=== PATIENT | male | born 1990 | race Caucasian/White ===

== ENCOUNTER 2021-10-01 14:00 | Emergency (ER) | payer SELFPAY ==
[~2021-10-01] VITALS: Ht 180.3 cm; Wt 97.5 kg
[2021-10-01 14:01] VITALS: BP 119/48
--- NOTE | 2021-10-01 14:07 | NUR ---
PT AMBULATED TO BED 01.
[2021-10-01] MEDS: ONDANSETRON 4 MG/2 ML VIAL IVP ONE (14:16)
[2021-10-01] MEDS: KETOROLAC 15 MG/ML VIAL IVP ONE (14:17)
--- NOTE | 2021-10-01 14:19 | NUR ---
DR. LIN AT PT BEDSIDE FOR FURTHER EVALUATION.
[2021-10-01 14:28] LABS: BASOPHILS # (AUTO) 0.2 K/uL (0.00-0.22); BASOPHILS % (AUTO) 1.2 % (0.0-2.0); EOSINOPHILS # (AUTO) 0.1 K/uL (0-0.4); EOSINOPHILS % (AUTO) 1.1 % (0.0-4.0); HEMATOCRIT 48.5 % (36-52); HEMOGLOBIN 16.6 g/dL (12.0-18.0); LYMPHOCYTES # (AUTO) 5.4 K/uL (2.0-11.5); LYMPHOCYTES % (AUTO) 42.8 % (20.5-51.1); MEAN CORPUSCULAR HEMOGLOBIN 30 pg (27-31); MEAN CORPUSCULAR HGB CONC 34 g/dL (33-37); MEAN CORPUSCULAR VOLUME 87.2 fL (80-94); MONOCYTES # (AUTO) 1.2 K/uL (0.8-1.0); NEUTROPHILS # (AUTO) 5.6 K/uL (1.8-7.7); NEUTROPHILS % (AUTO) 44.9 % (42.2-75.2); PLATELET COUNT (AUTO) 385 K/uL (140-450); RED BLOOD CELL COUNT(AUTO) 5.56 MIL/uL (4.20-6.10); WHITE BLOOD COUNT (AUTO) 12.5 K/uL (4.8-10.8)
[2021-10-01 14:53] LABS: ALBUMIN 3.5 g/dL (3.4-5.0); ANION GAP 13.6 (8-16); CARBON DIOXIDE 25.8 mmol/L (21-32); CREATININE 1.2 mg/dL (0.6-1.3); POTASSIUM 3.4 mmol/L (3.5-5.1); TOTAL BILIRUBIN 0.4 mg/dL (0.0-1.0)
--- NOTE | 2021-10-01 15:10 | NUR ---
DR LIN AT BEDSIDE FOR FURTHER EVAL, NOTED INCREASED NAUSEA AND VOMITING DESPITE MEDICATION
[2021-10-01] MEDS: diphenhydrAMINE 50 MG/ML VIAL IVP ONE (15:28)
[2021-10-01] MEDS: HALOPERIDOL IM 5 MG/ML VIAL IVP ONE (15:28)
--- NOTE | 2021-10-01 15:40 | NUR ---
PT TAKEN TO CT VIA WC
--- NOTE | 2021-10-01 16:30 | NUR ---
SPOKE TO DR LAND, PT NO URINE YET, ORDERED NSS BOLUS, STATED THAT IF BOLUS FINISHED AND NO URINE, MAY STRAIGHT CATH
[2021-10-01] MEDS: NACL 0.9% 1,000 ML IV ONE (16:31)
[2021-10-01] MEDS ORDERED: NACL 0.9% 1,000 ML IV ONE (17:55)
[2021-10-01] MEDS ORDERED: TAMS0.4C96 PO (18:34)
[2021-10-01] MEDS ORDERED: ONDA-188 SL (18:34)
[2021-10-01] MEDS ORDERED: IBUP-2218 PO (18:34)
[2021-10-01 19:13] VITALS: BP 137/92
--- NOTE | 2021-10-01 19:14 | NUR ---
Patient discharged with v/s stable. Written and verbal after care instructions given and explained. Patient alert, oriented and verbalized understanding of instructions. Ambulatory with steady gait. All questions addressed prior to discharge. ID band removed. Patient advised to follow up with PMD. Rx of TAMSULIN, ZOFRAN, MOTRIN given. Patient educated on indication of medication including possible reaction and side effects. Opportunity to ask questions provided and answered.
[2021-10-01 20:37] LABS: APPEARANCE,URINE CLEAR (CLEAR); BILIRUBIN,URINE NEGATIVE (NEGATIVE); BLOOD, URINE 3+ (NEGATIVE); COLOR,URINE YELLOW (YELLOW); LEUKOCYTE ESTERASE ,URINE NEGATIVE (NEGATIVE); NITRITE, URINE NEGATIVE (NEGATIVE); UGLUCOSE NEGATIVE (NEGATIVE)
[2021-10-01 20:51] LABS: RBC,URINE >100 /HPF (0-5); WBC,URINE NONE SEEN /HPF (0-5)
== END 2021-10-01 19:10 | disposition home or self-care (01) ==
LOC: MED 14:00
DX: N20.0 Calculus of kidney (principal); R11.10 Vomiting, unspecified; F12.90 Cannabis use, unspecified, uncomplicated; Z79.899 Other long term (current) drug therapy; Z98.890 Other specified postprocedural states
CPT/HCPCS: 36415; 74177; 80053; 81001; 83690; 85025; 96361; 96374; 96375; 99285; J1200; J1630; J1885; J2405; J7030; Q9967

== ENCOUNTER 2021-11-20 08:21 | Emergency (ER) | payer MEDICAID ==
[~2021-11-20] VITALS: Ht 180.3 cm; Wt 117.0 kg
[~2021-11-20 08:21] MED LIST: IBUP-2218 PO; ONDA-188 SL; TAMS0.4C96 PO
--- NOTE | 2021-11-20 08:28 | NUR ---
Patient ambulated with steady gait to bed 8.
--- NOTE | 2021-11-20 08:31 | NUR ---
Dr. Whalen evaluating patient at bedside.
[2021-11-20] MEDS ORDERED: KETOROLAC 30 MG/ML VIAL IVP ONE (08:35)
[2021-11-20] MEDS ORDERED: NACL 0.9% 1,000 ML IV SCH (08:35)
[2021-11-20] MEDS ORDERED: DIPHENOXYLATE /ATROPINE 2.5 MG TAB PO ONE (08:35)
[2021-11-20] MEDS ORDERED: FAMOTIDINE 20 MG/2 ML VIAL IVP ONE (08:35)
[2021-11-20] MEDS ORDERED: ONDANSETRON 4 MG/2 ML VIAL IVP ONE ×2 (08:35→09:20)
[2021-11-20 08:39] VITALS: BP 160/108
--- NOTE | 2021-11-20 08:53 | NUR ---
pt continued with n/v, po med not yet given
[2021-11-20 09:07] LABS: BASOPHILS # (AUTO) 0.1 K/uL (0.00-0.22); BASOPHILS % (AUTO) 1.4 % (0.0-2.0); EOSINOPHILS # (AUTO) 0.2 K/uL (0-0.4); EOSINOPHILS % (AUTO) 2.3 % (0.0-4.0); HEMATOCRIT 52.6 % (36-52); HEMOGLOBIN 17.7 g/dL (12.0-18.0); LYMPHOCYTES # (AUTO) 2.9 K/uL (2.0-11.5); LYMPHOCYTES % (AUTO) 28.7 % (20.5-51.1); MEAN CORPUSCULAR HEMOGLOBIN 30 pg (27-31); MEAN CORPUSCULAR HGB CONC 34 g/dL (33-37); MEAN CORPUSCULAR VOLUME 88.1 fL (80-94); MONOCYTES # (AUTO) 0.7 K/uL (0.8-1.0); NEUTROPHILS # (AUTO) 6.1 K/uL (1.8-7.7); NEUTROPHILS % (AUTO) 60.6 % (42.2-75.2); PLATELET COUNT (AUTO) 380 K/uL (140-450); RED BLOOD CELL COUNT(AUTO) 5.97 MIL/uL (4.20-6.10); RED CELL DISTRIBUTION WIDTH 14.4 % (11.6-13.7)
[2021-11-20 09:35] LABS: ALBUMIN 3.9 g/dL (3.4-5.0); ANION GAP 14.2 (8-16); CARBON DIOXIDE 26.3 mmol/L (21-32); POTASSIUM 4.5 mmol/L (3.5-5.1); TOTAL BILIRUBIN 0.4 mg/dL (0.0-1.0)
[2021-11-20] MEDS ORDERED: METOCLOPRAMIDE 10 MG/2 ML INJ VIAL IVP ONE ×2 (09:35→12:55)
--- NOTE | 2021-11-20 09:36 | NUR ---
DR RAJPUT MADE AWARE OF PT GIVEN ZOFRAN, CLARIFIED WITH MD REGARDING PT GIVEN REGLAN WELL, STATED THAT EVEN IF THE ZOFRAN WAS JUST GIVEN, GIVE THE REGLAN WELL
--- NOTE | 2021-11-20 09:40 | NUR ---
PT SEEN PUTTING FINGER DOWN HIS THROAT, PT EDUCATED TO NOT FORCE HIMSELF TO THROW UP THIS WILL EXACERBATE HIS PAIN, PT VERBALIZED UNDERSTANDING
[2021-11-20] MEDS ORDERED: HALOPERIDOL IM 5 MG/ML VIAL IM ONE (10:20)
--- NOTE | 2021-11-20 10:48 | NUR ---
Utrasound at bedside.
--- NOTE | 2021-11-20 12:38 | NUR ---
Patient is laying in bed, respirations are even and unlabored. Needs met.
[2021-11-20] MEDS ORDERED: LORazepam 2 MG/ML VIAL IVP ONE (12:55)
[2021-11-20] MEDS ORDERED: LORazepam 2 MG/ML VIAL ONE (12:58)
[2021-11-20] MEDS ORDERED: ONDA-188 PO (13:56)
[2021-11-20] MEDS ORDERED: FAMO-92 PO (13:56)
[2021-11-20 14:00] VITALS: BP 142/84
--- NOTE | 2021-11-20 14:13 | NUR ---
Patient discharged with v/s stable. Written and verbal after care instructions given. Patient alert, oriented and verbalized understanding of instructions. Ambulatory with steady gait. All questions addressed prior to discharge. ID band removed. Patient advised to follow up with PMD. Rx of Pepcid and Zofran given. Opportunity to ask questions provided and answered.
--- NOTE | 2021-11-20 14:20 | NUR ---
The patient's care was reviewed and supervised by Palmer Francisco RN.
== END 2021-11-20 14:13 | disposition home or self-care (01) ==
LOC: MED 08:21
DX: R10.9 Unspecified abdominal pain (principal); R11.2 Nausea with vomiting, unspecified; F12.90 Cannabis use, unspecified, uncomplicated; Z87.442 Personal history of urinary calculi
CPT/HCPCS: 36415; 76705; 80053; 83690; 85025; 96361; 96372; 96374; 96375; 99284; J1630; J1885; J2060; J2405; J2765; J3490; Q0092; J7030

== ENCOUNTER 2022-01-23 13:43 | Emergency (ER) | payer MEDICAID ==
[~2022-01-23] VITALS: Ht 180.3 cm; Wt 115.7 kg
[2022-01-23 13:43] VITALS: BP 159/109
[~2022-01-23 13:43] MED LIST changes: +FAMO-92 PO; +ONDA-188 PO
--- NOTE | 2022-01-23 13:44 | NUR ---
THALIA LUCIANO TO ER CHAIR C
[2022-01-23] MEDS ORDERED: NACL 0.9% 1,000 ML IV ONE (13:55)
[2022-01-23] MEDS ORDERED: KETOROLAC 30 MG/ML VIAL IVP ONE (13:55)
[2022-01-23] MEDS ORDERED: ONDANSETRON 4 MG/2 ML VIAL IVP ONE (13:55)
[2022-01-23] MEDS ORDERED: diphenhydrAMINE 50 MG/ML VIAL IVP ONE (13:55)
--- NOTE | 2022-01-23 14:33 | NUR ---
PATIENT PROVIDED WITH URINAL, STATED UNABLE TO PROVIDE URINE AT THIS TIME, ERMD MADE AWARE
[2022-01-23 15:02] LABS: BASOPHILS # (AUTO) 0.1 K/uL (0.00-0.22); BASOPHILS % (AUTO) 0.6 % (0.0-2.0); EOSINOPHILS % (AUTO) 0.1 % (0.0-4.0); HEMATOCRIT 50.7 % (36-52); HEMOGLOBIN 17.7 g/dL (12.0-18.0); LYMPHOCYTES # (AUTO) 1.5 K/uL (2.0-11.5); LYMPHOCYTES % (AUTO) 13.1 % (20.5-51.1); MEAN CORPUSCULAR HEMOGLOBIN 30 pg (27-31); MEAN CORPUSCULAR HGB CONC 35 g/dL (33-37); MONOCYTES % (AUTO) 8.5 % (1.7-9.3); NEUTROPHILS # (AUTO) 9.2 K/uL (1.8-7.7); NEUTROPHILS % (AUTO) 77.7 % (42.2-75.2); PLATELET COUNT (AUTO) 386 K/uL (140-450); RED BLOOD CELL COUNT(AUTO) 5.83 MIL/uL (4.20-6.10); RED CELL DISTRIBUTION WIDTH 14.2 % (11.6-13.7); WHITE BLOOD COUNT (AUTO) 11.8 K/uL (4.8-10.8)
[2022-01-23 15:30] LABS: ANION GAP 15.4 (8-16); ASPARTATE AMINOTRANSFERASE 18 U/L (15-37); CARBON DIOXIDE 25.7 mmol/L (21-32); CHLORIDE 102 mmol/L (98-107); GFR ARICAN-AMERICAN 111 mL/min (>90); GLUCOSE 146 mg/dL (74-106); POTASSIUM 3.1 mmol/L (3.5-5.1); SODIUM SERUM 140 mmol/L (136-145); TOTAL BILIRUBIN 0.8 mg/dL (0.0-1.0); UREA NITROGEN, BLOOD 9 mg/dL (7-18)
--- NOTE | 2022-01-23 15:59 | NUR ---
31/M BIBA FROM HOME. PER EMS PATIENT CALLED 911 C/O 01/22 ABDOMINAL PAIN, N/V/D SINCE LAST NIGHT. PATIENT DENIES TAKING MEDICATION FOR SYMPTOMS. EN ROUTE PATIENT WAS GIVEN 100MCG FENTANYL AND 4MG ZOFRAN IV BY EMS. PATIENT REPORTS NO RELIEF OF PAIN UPON ARRIVAL. PATIENT PLACED IN GOWN AND PLACED ON BEDSIDE COURT RECORDING MONITOR, DR. WOODS AWARE OF PATIENT ON ARRIVAL TO ED. PATIENT DENIES SOB, CP, FEVERS OR CHILLS.
[2022-01-23] MEDS ORDERED: SIME125T38 PO (16:28)
[2022-01-23] MEDS ORDERED: FAMO-92 PO (16:31)
[2022-01-23] MEDS ORDERED: ONDA-188 PO (16:31)
--- NOTE | 2022-01-23 17:15 | NUR ---
IV removed, catheter intact and site benign. Applied folded 4x4 gauze and tape to stop bleeding.
[2022-01-23 17:35] VITALS: BP 156/89
--- NOTE | 2022-01-23 17:36 | NUR ---
Patient discharged with v/s stable. Written and verbal after care instructions ABOUT GASTRITIS given and explained. Patient alert, oriented and verbalized understanding of instructions. Ambulatory with steady gait. All questions addressed prior to discharge. ID band removed. Patient advised to follow up with PMD. Rx of PEPCID, ZOFRAN AND MYLANTA given. Patient educated on indication of medication including possible reaction and side effects. Opportunity to ask questions provided and answered. PATIENT PROVIDED WITH SHELIA
== END 2022-01-23 17:36 | disposition home or self-care (01) ==
LOC: MED 13:43
DX: K29.70 Gastritis, unspecified, without bleeding (principal)
CPT/HCPCS: 36415; 71045; 80053; 84484; 85025; 93005; 96361; 96374; 96375; 99285; J1200; J1885; J2405; J7030

== ENCOUNTER 2022-03-13 05:24 | Emergency (ER) | payer MEDICAID ==
[~2022-03-13] VITALS: Ht 180.3 cm; Wt 117.9 kg
[~2022-03-13 05:24] MED LIST changes: +SIME125T38 PO
[2022-03-13 05:33] VITALS: BP 132/80
[2022-03-13] MEDS ORDERED: ONDANSETRON 4 MG/2 ML VIAL IM ONE (05:45)
--- NOTE | 2022-03-13 05:47 | NUR ---
31 YEAR OLD MALE BIB SELF, C/C ABDOMINAL PAIN 01/22 X 1 DAY. STATES "I FEEL A SHARP STABBING IN MY LOWER STOMACH. I THINK IT IS THE BLUNT ON WEED I TOOK. I DIDNT EAT ANYTHING ELSE." PATIENT OBSERVED +VOMITING. DENIES PAST MEDICAL HX. NKDA DENIES PREVIOUS MEDICATION PRIOR TO VISIT.
--- NOTE | 2022-03-13 05:51 | NUR ---
TO YEMI Munoz
--- NOTE | 2022-03-13 05:57 | NUR ---
TO BED 6
[2022-03-13] MEDS ORDERED: ONDANSETRON 4 MG/2 ML VIAL IVP ONE (06:20)
[2022-03-13] MEDS ORDERED: NACL 0.9% 1,000 ML IV ONE (06:20)
--- NOTE | 2022-03-13 06:20 | NUR ---
LABS DRAWN AND AT BEDSIDE AND SENT TO LAB. 20G IV CATH R AC
--- NOTE | 2022-03-13 06:22 | NUR ---
ON BEDSIDE MEDIA TECHNICIAN.
[2022-03-13] MEDS ORDERED: LORazepam 2 MG/ML VIAL IVP ONE (06:25)
[2022-03-13] MEDS ORDERED: HALOPERIDOL IM 5 MG/ML VIAL IM ONE (06:25)
--- NOTE | 2022-03-13 06:28 | NUR ---
31YR OLD MALE C/O VOMITING AND ABD PAIN. PT STATES SMOKING A GRAM OF WEED WHEN SX STARTED. PT IS A&OX4 SKIN WARM AND MOIST. RESP EVEN AND UNLABORED. ON BEDSIDE MONITOR. 20G IV CATH PLACED IN L AC. PT HOB ELEVATED BED AT LOWEST POSITION SIDE RAILS UP X2 NKDA NO MED HX
[2022-03-13 07:21] LABS: BASOPHILS # (AUTO) 0.1 K/uL (0.00-0.22); BASOPHILS % (AUTO) 1.1 % (0.0-2.0); EOSINOPHILS # (AUTO) 0.2 K/uL (0-0.4); HEMATOCRIT 48.7 % (36-52); HEMOGLOBIN 16.7 g/dL (12.0-18.0); LYMPHOCYTES # (AUTO) 2.4 K/uL (2.0-11.5); LYMPHOCYTES % (AUTO) 23.8 % (20.5-51.1); MEAN CORPUSCULAR HEMOGLOBIN 30 pg (27-31); MEAN CORPUSCULAR HGB CONC 34 g/dL (33-37); MEAN CORPUSCULAR VOLUME 86.7 fL (80-94); MONOCYTES # (AUTO) 0.7 K/uL (0.8-1.0); NEUTROPHILS # (AUTO) 6.7 K/uL (1.8-7.7); NEUTROPHILS % (AUTO) 66.1 % (42.2-75.2); PLATELET COUNT (AUTO) 389 K/uL (140-450); RED BLOOD CELL COUNT(AUTO) 5.62 MIL/uL (4.20-6.10); RED CELL DISTRIBUTION WIDTH 14.3 % (11.6-13.7); WHITE BLOOD COUNT (AUTO) 10.1 K/uL (4.8-10.8)
[2022-03-13] MEDS ORDERED: METOCLOPRAMIDE 10 MG/2 ML INJ VIAL IVP STA (07:42)
[2022-03-13] MEDS ORDERED: diphenhydrAMINE 50 MG/ML VIAL IVP ONE (07:45)
[2022-03-13 10:01] LABS: ANION GAP 15.8 (8-16); CARBON DIOXIDE 22.1 mmol/L (21-32); POTASSIUM 3.9 mmol/L (3.5-5.1)
[2022-03-13 10:02] LABS: CREATININE 1.1 mg/dL (0.6-1.3); TOTAL BILIRUBIN 0.3 mg/dL (0.0-1.0)
[2022-03-13 10:03] LABS: ALBUMIN 3.7 g/dL (3.4-5.0)
[2022-03-13 10:20] VITALS: BP 124/68
--- NOTE | 2022-03-13 10:21 | NUR ---
The patient's care was reviewed and supervised by Palmer Francisco RN.
--- NOTE | 2022-03-13 10:21 | NUR ---
Patient discharged with v/s stable. Written and verbal after care instructions given and explained. Patient verbalized understanding. Ambulatory with steady gait. All questions addressed prior to discharge. Advised to follow up with PMD.
== END 2022-03-13 10:21 | disposition home or self-care (01) ==
LOC: MED 05:24
DX: R11.2 Nausea with vomiting, unspecified (principal); R10.84 Generalized abdominal pain; Z98.890 Other specified postprocedural states
CPT/HCPCS: 36415; 80053; 83690; 85025; 96361; 96372; 96374; 96375; 99284; J1200; J1630; J2060; J2405; J2765; J7030

== ENCOUNTER 2022-05-19 00:17 | Emergency (ER) | payer MEDICAID ==
[~2022-05-19] VITALS: Ht 175.3 cm; Wt 113.4 kg
[2022-05-19 00:21] VITALS: BP 169/97
--- NOTE | 2022-05-19 00:25 | NUR ---
PT TAKEN TO BED 3
--- NOTE | 2022-05-19 00:39 | NUR ---
RECEIVED IN BED 4 WITH 9/10 CHEST PAIN NONRAD XYESTERDAY. REPORTS N/V AND 9/10 ABD PAIN. PT STATES HE HASNT SMOKED WEED. DENIES HX, RX AND ALLERGIES
[2022-05-19] MEDS ORDERED: NACL 0.9% 1,000 ML IV SCH (00:40)
[2022-05-19] MEDS ORDERED: HALOPERIDOL IM 5 MG/ML VIAL IM ONE (00:40)
[2022-05-19] MEDS ORDERED: ONDANSETRON 4 MG/2 ML VIAL IVP ONE (00:40)
[2022-05-19] MEDS ORDERED: KETOROLAC 30 MG/ML VIAL IVP ONE (00:40)
--- NOTE | 2022-05-19 00:45 | NUR ---
Dr. Crouch examining patient.
[2022-05-19] MEDS ORDERED: FAMOTIDINE 20 MG/2 ML VIAL IVP ONE (00:50)
--- NOTE | 2022-05-19 00:50 | NUR ---
IV ESTABLISHED, LABS DRAWN
[2022-05-19 01:09] LABS: BASOPHILS # (AUTO) 0.1 K/uL (0.00-0.22); BASOPHILS % (AUTO) 0.6 % (0.0-2.0); EOSINOPHILS # (AUTO) 0.1 K/uL (0-0.4); EOSINOPHILS % (AUTO) 1.1 % (0.0-4.0); HEMATOCRIT 47.4 % (36-52); HEMOGLOBIN 16.5 g/dL (12.0-18.0); LYMPHOCYTES % (AUTO) 8.7 % (20.5-51.1); MEAN CORPUSCULAR HEMOGLOBIN 30 pg (27-31); MEAN CORPUSCULAR HGB CONC 35 g/dL (33-37); MEAN CORPUSCULAR VOLUME 87.2 fL (80-94); MONOCYTES % (AUTO) 8.4 % (1.7-9.3); NEUTROPHILS # (AUTO) 9.7 K/uL (1.8-7.7); PLATELET COUNT (AUTO) 331 K/uL (140-450); RED BLOOD CELL COUNT(AUTO) 5.44 MIL/uL (4.20-6.10)
[2022-05-19 01:26] LABS: ALBUMIN 3.7 g/dL (3.4-5.0); ANION GAP 14.5 (8-16); CARBON DIOXIDE 28.4 mmol/L (21-32); CREATININE 1.1 mg/dL (0.6-1.3); POTASSIUM 3.9 mmol/L (3.5-5.1); TOTAL BILIRUBIN 0.5 mg/dL (0.0-1.0)
[2022-05-19 01:28] LABS: NEUTROPHILS % (AUTO) 81.2 % (42.2-75.2)
[2022-05-19 02:00] VITALS: BP 148/84
--- NOTE | 2022-05-19 02:00 | NUR ---
RESTING IN BED WITH EYES CLOSED, RESPIRATIONS REGULAR AND UNLABORED. HAS HAD NO FURTHER VOMITING
[2022-05-19] MEDS ORDERED: ONDA-188 PO (04:12)
[2022-05-19] MEDS ORDERED: BEN10 PO (04:13)
[2022-05-19 05:18] LABS: APPEARANCE,URINE CLEAR (CLEAR); BILIRUBIN,URINE NEGATIVE (NEGATIVE); BLOOD, URINE NEGATIVE (NEGATIVE); COLOR,URINE YELLOW (YELLOW); LEUKOCYTE ESTERASE ,URINE NEGATIVE (NEGATIVE); NITRITE, URINE NEGATIVE (NEGATIVE); PH,URINE 8.5 (5.0-9.0); UGLUCOSE NEGATIVE (NEGATIVE)
[2022-05-19 05:31] LABS: BARBITURATE, URINE NEGATIVE ng/ml (NEG <=200); BENZODIAZEPINE, URINE NEGATIVE ng/mL (NEG <=200); CANNABINOID, URINE POSITIVE ng/mL (NEG <=50); COCAINE, URINE NEGATIVE ng/mL (NEG <=300); OPIATE, URINE POSITIVE ng/mL (NEG <=2000); PHENCYCLIDINE SCREEN,URINE NEGATIVE ng/mL (NEG <=25)
== END 2022-05-19 06:00 | disposition home or self-care (01) ==
LOC: MED 00:17
DX: R11.2 Nausea with vomiting, unspecified (principal); R10.13 Epigastric pain; F12.90 Cannabis use, unspecified, uncomplicated
CPT/HCPCS: 36415; 80053; 80305; 81003; 83690; 85025; 93005; 96361; 96372; 96374; 96375; 99284; J1630; J1885; J2405; J3490; J7030

== ENCOUNTER 2022-06-03 08:37 | Emergency (ER) | payer MEDICAID ==
[~2022-06-03] VITALS: Ht 154.9 cm; Wt 115.4 kg
[~2022-06-03 08:37] MED LIST changes: +BEN10 PO
[2022-06-03 08:47] VITALS: BP 160/106
--- NOTE | 2022-06-03 08:52 | NUR ---
PT AMB TO BED 8.
--- NOTE | 2022-06-03 08:57 | NUR ---
Patient being evaluated by DR LANGFORD at bedside.
[2022-06-03] MEDS ORDERED: KETOROLAC 60 MG/2 ML VIAL IM ONE (09:00)
[2022-06-03] MEDS ORDERED: ONDANSETRON 4 MG ODT PO ONE (09:00)
--- NOTE | 2022-06-03 09:06 | NUR ---
PT NOTED TO BE PLACING FINGER IN MOUTH TO GAG, INFORMED THAT HE SHOULD NOT FORCE HIMSELF TO THROW UP, ERMD MADE AWARE
[2022-06-03] MEDS ORDERED: ONDA8TAB87 PO (09:39)
[2022-06-03] MEDS ORDERED: IBUP-2213 PO (09:39)
--- NOTE | 2022-06-03 09:57 | NUR ---
The patient's care was reviewed and supervised by Palmer Francisco RN.
--- NOTE | 2022-06-03 09:57 | NUR ---
Patient discharged with v/s stable. Written and verbal after care instructions given. Patient alert, oriented and verbalized understanding of instructions. Ambulatory with steady gait. All questions addressed prior to discharge. ID band removed. Patient advised to follow up with PMD. Rx of Ibuprofen and Zofran given. Opportunity to ask questions provided and answered.
--- NOTE | 2022-06-03 09:58 | NUR ---
The patient's care was reviewed and supervised by Cassie Hager, RN, RN.
== END 2022-06-03 09:57 | disposition home or self-care (01) ==
LOC: MED 08:37
DX: R10.13 Epigastric pain (principal); R11.2 Nausea with vomiting, unspecified; F12.90 Cannabis use, unspecified, uncomplicated; Z98.890 Other specified postprocedural states; Z79.899 Other long term (current) drug therapy; Z79.1 Long term (current) use of non-steroidal anti-inflammatories (NSAID)
CPT/HCPCS: 96372; 99283; J1885; Q0162

== ENCOUNTER 2022-06-03 14:10 | Emergency (ER) | payer MEDICAID ==
[~2022-06-03] VITALS: Ht 180.3 cm; Wt 113.4 kg
[2022-06-03 14:10] VITALS: BP 157/96
[~2022-06-03 14:10] MED LIST changes: +IBUP-2213 PO; +ONDA8TAB87 PO
--- NOTE | 2022-06-03 14:19 | NUR ---
LWBS AT THIS TIME. PT AMBULATED OUTSIDE.
[2022-06-03 14:42] VITALS: BP 157/96
== END 2022-06-03 14:19 | disposition left against medical advice (07) ==
LOC: MED 14:10
DX: R10.9 Unspecified abdominal pain (principal); R11.2 Nausea with vomiting, unspecified; Z53.21 Procedure and treatment not carried out due to patient leaving prior to being seen by health care provider

== ENCOUNTER 2022-06-16 08:16 | Emergency (ER) | payer MEDICAID ==
[~2022-06-16] VITALS: Ht 180.3 cm; Wt 97.5 kg
[2022-06-16 08:19] VITALS: BP 177/118
--- NOTE | 2022-06-16 08:25 | NUR ---
PT AMB TO BED 12.
--- NOTE | 2022-06-16 08:26 | NUR ---
Patient being evaluated by JADA CHÁVEZ at bedside.
[2022-06-16] MEDS ORDERED: NACL 0.9% 1,000 ML IV ONE (08:30)
[2022-06-16] MEDS ORDERED: HALOPERIDOL IM 5 MG/ML VIAL IM ONE (08:30)
[2022-06-16] MEDS ORDERED: ONDANSETRON 4 MG/2 ML VIAL IVP ONE (08:30)
--- NOTE | 2022-06-16 08:51 | NUR ---
31/M WALKED IN C/O ABDOMINAL PAIN, N/V/D X TODAY. PT REPORTS PREVIOUS HX OF SAME S/SX. PT REPORTS HX CANABIS USE WITH LAST SMOKING 1 MONTH AGO. DENIES BLOOD IN VOMIT. ACTIVELY VOMITING AT THIS TIME. IV ESTABLISHED TO RIGHT AC WITH 20G. BLOOD DRAWN AND SENT TO LAB.
[2022-06-16 09:12] LABS: ANION GAP 13.7 (8-16); CARBON DIOXIDE 27.4 mmol/L (21-32); CREATININE 1.2 mg/dL (0.6-1.3); POTASSIUM 4.1 mmol/L (3.5-5.1); TOTAL BILIRUBIN 0.4 mg/dL (0.0-1.0)
[2022-06-16] MEDS ORDERED: MORPHINE SULFATE 4 MG/ML SYR IVP ONE (09:15)
[2022-06-16 09:26] LABS: BASOPHILS # (AUTO) 0.1 K/uL (0.00-0.22); BASOPHILS % (AUTO) 1.2 % (0.0-2.0); EOSINOPHILS # (AUTO) 0.1 K/uL (0-0.4); EOSINOPHILS % (AUTO) 1.1 % (0.0-4.0); HEMATOCRIT 50.6 % (36-52); LYMPHOCYTES # (AUTO) 2.4 K/uL (2.0-11.5); LYMPHOCYTES % (AUTO) 19.8 % (20.5-51.1); MEAN CORPUSCULAR HEMOGLOBIN 29 pg (27-31); MEAN CORPUSCULAR HGB CONC 34 g/dL (33-37); MEAN CORPUSCULAR VOLUME 87.6 fL (80-94); MONOCYTES # (AUTO) 0.6 K/uL (0.8-1.0); MONOCYTES % (AUTO) 5.2 % (1.7-9.3); NEUTROPHILS # (AUTO) 8.9 K/uL (1.8-7.7); NEUTROPHILS % (AUTO) 72.7 % (42.2-75.2); PLATELET COUNT (AUTO) 394 K/uL (140-450); RED BLOOD CELL COUNT(AUTO) 5.78 MIL/uL (4.20-6.10); RED CELL DISTRIBUTION WIDTH 14.4 % (11.6-13.7); WHITE BLOOD COUNT (AUTO) 12.3 K/uL (4.8-10.8)
[2022-06-16 09:41] LABS: APPEARANCE,URINE CLEAR (CLEAR); BILIRUBIN,URINE NEGATIVE (NEGATIVE); BLOOD, URINE NEGATIVE (NEGATIVE); COLOR,URINE YELLOW (YELLOW); LEUKOCYTE ESTERASE ,URINE NEGATIVE (NEGATIVE); NITRITE, URINE NEGATIVE (NEGATIVE); PH,URINE 8.5 (5.0-9.0); UGLUCOSE NEGATIVE (NEGATIVE)
[2022-06-16] MEDS ORDERED: SUCR1TAB35 PO (09:49)
[2022-06-16] MEDS ORDERED: SIME125T38 PO (09:49)
[2022-06-16] MEDS ORDERED: FAMO-90 PO (09:49)
[2022-06-16] MEDS ORDERED: ONDA-188 PO (09:49)
--- NOTE | 2022-06-16 10:29 | NUR ---
farnaz collected and sent to lab
[2022-06-16 10:30] VITALS: BP 152/89
--- NOTE | 2022-06-16 10:48 | NUR ---
pt calm and resting at this time.
--- NOTE | 2022-06-16 11:30 | NUR ---
Patient discharged with v/s stable. Written and verbal after care instructions given and explained. Patient alert, oriented and verbalized understanding of instructions. Ambulatory with steady gait. All questions addressed prior to discharge. ID band removed. Patient advised to follow up with PMD. Rx given. Patient educated on indication of medication including possible reaction and side effects. Opportunity to ask questions provided and answered. pt no longer nauseous upon dc.
== END 2022-06-16 11:30 | disposition home or self-care (01) ==
LOC: MED 08:16
DX: R10.9 Unspecified abdominal pain (principal); Z20.822 Contact with and (suspected) exposure to COVID-19; R11.2 Nausea with vomiting, unspecified; F12.10 Cannabis abuse, uncomplicated
CPT/HCPCS: 36415; 80053; 81003; 82150; 83690; 85025; 87426; 96361; 96372; 96374; 96375; 99284; J1630; J2270; J2405; J7030

== ENCOUNTER 2022-06-27 09:22 | Emergency (ER) | payer MEDICAID ==
[~2022-06-27 09:22] MED LIST changes: +FAMO-90 PO; +SUCR1TAB35 PO
--- NOTE | 2022-06-27 09:41 | NUR ---
NAME CALLED, NO ANSWER
--- NOTE | 2022-06-27 09:59 | NUR ---
LEFT BEFORE TRIAGE
--- NOTE | 2022-06-27 09:59 | NUR ---
NAME CALLED, NO ANSWER
--- NOTE | 2022-06-27 09:59 | NUR ---
PATIENT LEFT WITHOUT BEING SEEN BY DR. RIVERA. NO FURTHER CARE PROVIDED FOR PATIENT.
== END 2022-06-27 09:59 | disposition left against medical advice (07) ==
LOC: MED 09:22
DX: R11.10 Vomiting, unspecified (principal); Z53.21 Procedure and treatment not carried out due to patient leaving prior to being seen by health care provider

== ENCOUNTER 2022-07-29 07:52 | Emergency (ER) | payer MEDICAID ==
[~2022-07-29] VITALS: Ht 180.3 cm; Wt 119.7 kg
[2022-07-29 07:59] VITALS: BP 162/105
--- NOTE | 2022-07-29 08:03 | NUR ---
AMBULATED TO ER BED 1
--- NOTE | 2022-07-29 08:27 | NUR ---
Dr. Saba evaluating patient at bedside.
[2022-07-29] MEDS ORDERED: NACL 0.9% 1,000 ML IV ONE (08:30)
[2022-07-29] MEDS ORDERED: HALOPERIDOL IM 5 MG/ML VIAL IM ONE (08:30)
[2022-07-29 09:22] LABS: BASOPHILS # (AUTO) 0.1 K/uL (0.00-0.22); EOSINOPHILS # (AUTO) 0.2 K/uL (0-0.4); EOSINOPHILS % (AUTO) 1.5 % (0.0-4.0); HEMATOCRIT 51.1 % (36-52); HEMOGLOBIN 17.3 g/dL (12.0-18.0); LYMPHOCYTES % (AUTO) 17.5 % (20.5-51.1); MEAN CORPUSCULAR HEMOGLOBIN 30 pg (27-31); MEAN CORPUSCULAR HGB CONC 34 g/dL (33-37); MEAN CORPUSCULAR VOLUME 87.9 fL (80-94); MONOCYTES # (AUTO) 0.7 K/uL (0.8-1.0); MONOCYTES % (AUTO) 6.4 % (1.7-9.3); NEUTROPHILS # (AUTO) 8.4 K/uL (1.8-7.7); NEUTROPHILS % (AUTO) 73.6 % (42.2-75.2); PLATELET COUNT (AUTO) 347 K/uL (140-450); RED BLOOD CELL COUNT(AUTO) 5.81 MIL/uL (4.20-6.10); RED CELL DISTRIBUTION WIDTH 14.2 % (11.6-13.7); WHITE BLOOD COUNT (AUTO) 11.4 K/uL (4.8-10.8)
[2022-07-29 09:48] LABS: ALBUMIN 3.6 g/dL (3.4-5.0); ANION GAP 9.8 (8-16); CARBON DIOXIDE 29.1 mmol/L (21-32); CREATININE 1.2 mg/dL (0.6-1.3); POTASSIUM 4.9 mmol/L (3.5-5.1); TOTAL BILIRUBIN 0.2 mg/dL (0.0-1.0)
[2022-07-29] MEDS ORDERED: METOCLOPRAMIDE 10 MG/2 ML INJ VIAL IVP ONE (10:05)
[2022-07-29] MEDS ORDERED: METO-485 PO (12:18)
[2022-07-29 12:23] VITALS: BP 150/90
--- NOTE | 2022-07-29 12:23 | NUR ---
Patient discharged. Written and verbal after care instructions given and explained. Patient alert, oriented and verbalized understanding of instructions. Ambulatory with steady gait. All questions addressed prior to discharge. ID band removed. Patient advised to follow up with PMD. Rx of Reglan given. Patient educated on indication of medication including possible reaction and side effects. Opportunity to ask questions provided and answered.
== END 2022-07-29 12:23 | disposition home or self-care (01) ==
LOC: MED 07:52
DX: R11.15 Cyclical vomiting syndrome unrelated to migraine (principal); F12.90 Cannabis use, unspecified, uncomplicated; Z79.899 Other long term (current) drug therapy; Z79.1 Long term (current) use of non-steroidal anti-inflammatories (NSAID)
CPT/HCPCS: 36415; 80053; 83690; 85025; 96372; 96374; 99284; J1630; J2765; J7030

== ENCOUNTER 2022-09-21 06:34 | Emergency (ER) | payer MEDICAID ==
[~2022-09-21] VITALS: Ht 180.3 cm; Wt 117.9 kg
[~2022-09-21 06:34] MED LIST changes: +METO-485 PO
[2022-09-21 06:36] VITALS: BP 184/81
--- NOTE | 2022-09-21 06:36 | NUR ---
to bed ambulatory
[2022-09-21] MEDS ORDERED: NACL 0.9% 1,000 ML IV ONE ×2 (06:50→09:05)
[2022-09-21] MEDS ORDERED: ONDANSETRON 4 MG/2 ML VIAL IVP ONE ×2 (06:50→09:05)
[2022-09-21] MEDS ORDERED: HALOPERIDOL IM 5 MG/ML VIAL IM ONE ×2 (07:00→10:50)
--- NOTE | 2022-09-21 07:26 | NUR ---
REPORT RECEIVED FROM GERTRUDIS GUTIERREZ
[2022-09-21 07:41] LABS: BASOPHILS # (AUTO) 0.1 K/uL (0.00-0.22); BASOPHILS % (AUTO) 1.3 % (0.0-2.0); EOSINOPHILS # (AUTO) 0.3 K/uL (0-0.4); EOSINOPHILS % (AUTO) 3.4 % (0.0-4.0); HEMATOCRIT 50.5 % (36-52); HEMOGLOBIN 17.6 g/dL (12.0-18.0); LYMPHOCYTES # (AUTO) 3.5 K/uL (2.0-11.5); LYMPHOCYTES % (AUTO) 38.3 % (20.5-51.1); MEAN CORPUSCULAR HEMOGLOBIN 30 pg (27-31); MEAN CORPUSCULAR HGB CONC 35 g/dL (33-37); MEAN CORPUSCULAR VOLUME 85.3 fL (80-94); MONOCYTES # (AUTO) 0.9 K/uL (0.8-1.0); MONOCYTES % (AUTO) 9.3 % (1.7-9.3); NEUTROPHILS # (AUTO) 4.4 K/uL (1.8-7.7); NEUTROPHILS % (AUTO) 47.7 % (42.2-75.2); PLATELET COUNT (AUTO) 365 K/uL (140-450); RED BLOOD CELL COUNT(AUTO) 5.92 MIL/uL (4.20-6.10); RED CELL DISTRIBUTION WIDTH 14.6 % (11.6-13.7); WHITE BLOOD COUNT (AUTO) 9.2 K/uL (4.8-10.8)
--- NOTE | 2022-09-21 07:50 | NUR ---
XRAY @ BEDSIDE. AAOX4. RESP EVEN AND NONLABORED. VSS. IVF RUNNING. NO ACTIVE N/V @ THIS TIME
[2022-09-21 07:54] LABS: ALBUMIN 3.6 g/dL (3.4-5.0); ANION GAP 16.2 (8-16); CARBON DIOXIDE 25.3 mmol/L (21-32); CREATININE 1.1 mg/dL (0.6-1.3); POTASSIUM 4.5 mmol/L (3.5-5.1); TOTAL BILIRUBIN 0.4 mg/dL (0.0-1.0)
[2022-09-21] MEDS ORDERED: FAMOTIDINE 20 MG/2 ML VIAL IVP ONE (08:10)
[2022-09-21] MEDS ORDERED: diphenhydrAMINE 50 MG/ML VIAL IVP ONE ×2 (08:10→10:55)
[2022-09-21] MEDS ORDERED: METOCLOPRAMIDE 10 MG/2 ML INJ VIAL IVP ONE (08:10)
[2022-09-21] MEDS ORDERED: LORazepam 2 MG/ML VIAL IVP ONE (09:05)
--- NOTE | 2022-09-21 11:07 | NUR ---
c/o n/v. medicated per md order.
--- NOTE | 2022-09-21 12:05 | NUR ---
resting in [facility]. resp even and nonlabored. vss. no n/v @ this time
[2022-09-21] MEDS ORDERED: ONDA-188 PO (13:01)
[2022-09-21 13:42] VITALS: BP 140/76
== END 2022-09-21 13:42 | disposition home or self-care (01) ==
LOC: MED 06:34
DX: R11.15 Cyclical vomiting syndrome unrelated to migraine (principal); I10 Essential (primary) hypertension; Z79.899 Other long term (current) drug therapy; Z98.890 Other specified postprocedural states
CPT/HCPCS: 36415; 74022; 80053; 83690; 85025; 93005; 96361; 96372; 96374; 96375; 96376; 99285; J1200; J1630; J2060; J2405; J2765; J3490; J7030

== ENCOUNTER 2022-10-25 13:11 | Emergency (ER) | payer SELFPAY ==
[~2022-10-25] VITALS: Ht 180.3 cm; Wt 112.0 kg
--- NOTE | 2022-10-25 13:11 | NUR ---
BIBA TO ER BED 8
[2022-10-25 13:15] VITALS: BP 167/86; RESP 20; TEMP 96.3; O2SAT 96
[2022-10-25] MEDS ORDERED: NACL 0.9% 1,000 ML IV ONE (13:35)
[2022-10-25] MEDS ORDERED: METOCLOPRAMIDE 10 MG/2 ML INJ VIAL IVP ONE (13:35)
[2022-10-25] MEDS ORDERED: diphenhydrAMINE 50 MG/ML VIAL IVP ONE (13:35)
--- NOTE | 2022-10-25 13:56 | NUR ---
Pt bibs for continuos n/v that started this morning. Pt is a/o x 4, vss, no ss of acute distress breathing equal and unlabored, speech clear. Pt is continously heaving and sometimes vomiting up clear liquid. Pt states this has happened several times in the past. IV started. Labs obtained and handed to lab at bedside. Pt medicated as ordered, tolerating well.
[2022-10-25 14:03] LABS: BASOPHILS # (AUTO) 0.1 K/uL (0.00-0.22); EOSINOPHILS # (AUTO) 0.1 K/uL (0-0.4); EOSINOPHILS % (AUTO) 1.1 % (0.0-4.0); HEMATOCRIT 49.6 % (36-52); HEMOGLOBIN 17.3 g/dL (12.0-18.0); LYMPHOCYTES # (AUTO) 2.8 K/uL (2.0-11.5); LYMPHOCYTES % (AUTO) 24.6 % (20.5-51.1); MEAN CORPUSCULAR HEMOGLOBIN 30 pg (27-31); MEAN CORPUSCULAR HGB CONC 35 g/dL (33-37); MEAN CORPUSCULAR VOLUME 85.5 fL (80-94); MONOCYTES # (AUTO) 0.9 K/uL (0.8-1.0); MONOCYTES % (AUTO) 7.8 % (1.7-9.3); NEUTROPHILS # (AUTO) 7.3 K/uL (1.8-7.7); NEUTROPHILS % (AUTO) 65.5 % (42.2-75.2); PLATELET COUNT (AUTO) 393 K/uL (140-450); RED CELL DISTRIBUTION WIDTH 14.2 % (11.6-13.7); WHITE BLOOD COUNT (AUTO) 11.2 K/uL (4.8-10.8)
[2022-10-25 14:19] LABS: ALBUMIN 3.8 g/dL (3.4-5.0); ANION GAP 17.7 (8-16); CARBON DIOXIDE 19.9 mmol/L (21-32); CREATININE 1.1 mg/dL (0.6-1.3); POTASSIUM 3.6 mmol/L (3.5-5.1); TOTAL BILIRUBIN 0.8 mg/dL (0.0-1.0)
[2022-10-25] MEDS ORDERED: HALOPERIDOL IM 5 MG/ML VIAL IVP ONE (14:40)
[2022-10-25] MEDS ORDERED: ONDA-188 SL (15:31)
[2022-10-25 16:14] VITALS: BP 133/74
[2022-10-25 16:15] VITALS: PULSE 55; RESP 18; O2SAT 97
--- NOTE | 2022-10-25 16:16 | NUR ---
Pt still has episodes of nausea but states this is normal. Pt resting in bed comfortably before MD spoke with him about dc. Patient discharged with v/s stable. Written and verbal after care instructions given and explained. Patient alert, oriented and verbalized understanding of instructions. Ambulatory with steady gait. All questions addressed prior to discharge. ID band removed. Patient advised to follow up with PMD. Rx reviewed with pt. Patient educated on indication of medication including possible reaction and side effects. Opportunity to ask questions provided and answered.
== END 2022-10-25 16:15 | disposition home or self-care (01) ==
LOC: MED 13:11
DX: R11.15 Cyclical vomiting syndrome unrelated to migraine (principal); F12.90 Cannabis use, unspecified, uncomplicated; Z79.899 Other long term (current) drug therapy; Z79.1 Long term (current) use of non-steroidal anti-inflammatories (NSAID)
CPT/HCPCS: 36415; 71045; 80053; 83690; 85025; 96361; 96374; 96375; 99284; J1200; J1630; J2765; Q0092